=== PATIENT | male | born 1970 | race Caucasian/White ===

== ENCOUNTER 2021-02-24 15:33 | Inpatient (IN) | payer OTHER ==
[~2021-02-24] VITALS: Ht 157.5 cm; Wt 85.3 kg
[2021-02-24 20:10] VITALS: BP 122/81
[2021-02-24] MEDS ORDERED: MELATONIN 5 MG TABLET PO PRN (20:30)
[2021-02-24] MEDS ORDERED: CETIRIZINE HCL 10 MG TABLET PO PRN (20:45)
[2021-02-24] MEDS ORDERED: BISACODYL 10 MG RECTAL RECTAL SUPPOSITORY PR PRN (20:45)
[2021-02-24] MEDS ORDERED: HydrOXYzine PAMOATE 25 MG CAPSULE PO PRN (20:45)
[2021-02-24] MEDS ORDERED: DiphenhydrAMINE HCL 25 MG CAPSULE PO PRN (20:45)
[2021-02-24] MEDS ORDERED: LACTULOSE 20 GM/30 ML SOLUTION UDCUP PO PRN (20:45)
[2021-02-24] MEDS ORDERED: OxyCODONE HCL 10 MG IR TABLET PO PRN (21:00)
[2021-02-24] MEDS: ACETAMINOPHEN 500 MG TABLET PO SCH (21:45)
[2021-02-24] MEDS: CELECOXIB 200 MG CAPSULE PO SCH (21:46)
[2021-02-24] MEDS: DOCUSATE SODIUM 100 MG CAPSULE PO SCH (21:46)
[2021-02-24] MEDS: GABAPENTIN 100 MG CAPSULE PO SCH (21:46)
[2021-02-24] MEDS: HEPARIN SODIUM,PORCINE 5,000 UNITS/ML VIAL SQ SCH (21:46)
[2021-02-24] MEDS: SENNA 187 MG TABLET PO SCH (21:46)
[2021-02-24] MEDS: ETHYL ALCOHOL 62% ANTISEPTIC NASAL INHALANT 0.6 ML AMPUL NASAL SCH (21:47)
[2021-02-24] MEDS ORDERED: SODIUM CL IRRIG SOLN BOTTLE 250 ML IRRIG ONE (21:48)
[2021-02-25] VITALS: BP 121/72
[2021-02-25] MEDS: ACETAMINOPHEN 500 MG TABLET PO SCH ×3 (06:01→21:32)
[2021-02-25] MEDS: HYDROGEN PEROXIDE 118 ML SOLUTION TP SCH (08:19)
[2021-02-25] MEDS: TAMSULOSIN HCL 0.4 MG CAPSULE PO SCH (08:20)
[2021-02-25] MEDS: ETHYL ALCOHOL 62% ANTISEPTIC NASAL INHALANT 0.6 ML AMPUL NASAL SCH ×2 (08:20→20:26)
[2021-02-25] MEDS: CELECOXIB 200 MG CAPSULE PO SCH ×2 (08:21→20:27)
[2021-02-25] MEDS: MULTIVITAMINS WITH MINERALS, THERAPEUTIC TABLET PO SCH (08:21)
[2021-02-25] MEDS: GABAPENTIN 100 MG CAPSULE PO SCH ×3 (08:21→20:27)
[2021-02-25] MEDS: DOCUSATE SODIUM 100 MG CAPSULE PO SCH ×2 (08:22→20:27)
[2021-02-25] MEDS: ASCORBIC ACID 500 MG TABLET PO SCH (08:22)
[2021-02-25] MEDS: HEPARIN SODIUM,PORCINE 5,000 UNITS/ML VIAL SQ SCH ×2 (08:24→16:15)
[2021-02-25 08:35] LABS: BASOPHILS % (AUTO) 0.4 % (0.0-2.0); HEMATOCRIT 30.1 % (41-53); LYMPHOCYTES % (AUTO) 14.4 % (22.0-44.0); MEAN CORPUSCULAR HEMOGLOBIN 30.8 pg (26.0-34.0); MEAN CORPUSCULAR HGB CONC 33.3 G/dL (31.0-37.0); MEAN CORPUSCULAR VOLUME 93 fL (80-100); MONOCYTES # (AUTO) 1.1 K/uL (0.1-1.0); NEUTROPHILS # (AUTO) 10.7 K/uL (1.8-7.7); NEUTROPHILS % (AUTO) 76.2 % (40.0-70.0); PLATELET COUNT (AUTO) 392 K/uL (150-450); RED BLOOD CELL COUNT(AUTO) 3.25 MIL/uL (4.50-5.90); RED CELL DISTRIBUTION WIDTH 15.5 % (11.5-14.5)
[2021-02-25 08:53] LABS: ALANINE AMINOTRANSFERASE 67 U/L (12-78); ALBUMIN 2.9 g/dL (3.4-5.0); ALKALINE PHOSPHATASE 61 U/L (46-116); ANION GAP 6 mmol/L (8-16); ASPARTATE AMINOTRANSFERASE 53 U/L (15-37); BILIRUBIN,TOTAL 1.3 mg/dL (0.1-1.0); CALCIUM, TOTAL 8.7 mg/dL (8.8-10.5); CARBON DIOXIDE 26 mmol/L (22-29); CHLORIDE 104 mmol/L (98-107); CREATININE 1.05 mg/dL (0.60-1.30); GLOMERULAR FILTR. RATE CALC > 60 mL/min (>60); GLUCOSE,RANDOM 101 mg/dL (70-110); POTASSIUM 4.7 mmol/L (3.5-5.1); SODIUM SERUM 136 mmol/L (136-145); TOTAL PROTEIN, SERUM 6.7 g/dL (6.4-8.2); UREA NITROGEN, BLOOD 24 mg/dL (7-18)
[2021-02-25 10:21] VITALS: BP 111/82
[2021-02-25 16:05] VITALS: BP 114/67
[2021-02-25 16:19] LABS: APPEARANCE,URINE CLEAR (CLEAR); BILIRUBIN,URINE NEGATIVE (NEGATIVE); GLUCOSE, URINE (UA) NEGATIVE (NEGATIVE); KETONES,URINE NEGATIVE (NEGATIVE); LEUKOCYTE ESTERASE ,URINE NEGATIVE (NEGATIVE); NITRATE,URINE NEGATIVE (NEGATIVE); OCCULT BLOOD,URINE NEGATIVE (NEGATIVE); PROTEIN,URINE NEGATIVE (NEGATIVE)
[2021-02-25 16:23] LABS: BACTERIA,URINE None Seen /HPF (None Seen); RBC,URINE None Seen /HPF (0-2); SQUAMOUS EPITHELIAL CELL,UR None Seen /LPF (None Seen); WBC,URINE None Seen /HPF (0-5)
[2021-02-25] MEDS: ENOXAPARIN SODIUM 40 MG/0.4 ML PF SYRINGE SQ SCH (20:26)
[2021-02-25] MEDS: SENNA 187 MG TABLET PO SCH (20:27)
[2021-02-26 00:12] VITALS: BP 119/70
[2021-02-26] MEDS: ACETAMINOPHEN 325 MG TABLET PO PRN ×2 (01:44→21:30)
[2021-02-26] MEDS: ACETAMINOPHEN 500 MG TABLET PO SCH (06:01)
[2021-02-26 08:02] VITALS: BP 104/63
[2021-02-26] MEDS: ETHYL ALCOHOL 62% ANTISEPTIC NASAL INHALANT 0.6 ML AMPUL NASAL SCH ×2 (08:08→21:24)
[2021-02-26] MEDS: DOCUSATE SODIUM 100 MG CAPSULE PO SCH ×2 (08:08→21:25)
[2021-02-26] MEDS: GABAPENTIN 100 MG CAPSULE PO SCH ×3 (08:08→21:25)
[2021-02-26] MEDS: ENOXAPARIN SODIUM 40 MG/0.4 ML PF SYRINGE SQ SCH ×3 (08:08→21:35)
[2021-02-26] MEDS: MULTIVITAMINS WITH MINERALS, THERAPEUTIC TABLET PO SCH (08:08)
[2021-02-26] MEDS: ASCORBIC ACID 500 MG TABLET PO SCH (08:08)
[2021-02-26] MEDS: TAMSULOSIN HCL 0.4 MG CAPSULE PO SCH (08:09)
[2021-02-26] MEDS: CELECOXIB 200 MG CAPSULE PO SCH ×2 (08:09→21:27)
[2021-02-26] MEDS: OxyCODONE HCL 5 MG IR TABLET PO PRN (09:30)
[2021-02-26] MEDS: HYDROGEN PEROXIDE 118 ML SOLUTION TP SCH (09:30)
[2021-02-26 16:00] VITALS: BP 141/72
[2021-02-26] MEDS: SENNA 187 MG TABLET PO SCH (21:25)
[2021-02-27 02:00] VITALS: BP 114/70
[2021-02-27 07:08] LABS: BASOPHILS % (AUTO) 0.3 % (0.0-2.0); EOSINOPHILS % (AUTO) 0.9 % (1.0-6.0); HEMATOCRIT 29.7 % (41-53); LYMPHOCYTES % (AUTO) 15.9 % (22.0-44.0); MEAN CORPUSCULAR HEMOGLOBIN 31.1 pg (26.0-34.0); MEAN CORPUSCULAR HGB CONC 33.5 G/dL (31.0-37.0); MEAN CORPUSCULAR VOLUME 93 fL (80-100); MONOCYTES # (AUTO) 1.1 K/uL (0.1-1.0); MONOCYTES % (AUTO) 8.7 % (2.0-9.0); NEUTROPHILS # (AUTO) 9.5 K/uL (1.8-7.7); NEUTROPHILS % (AUTO) 74.2 % (40.0-70.0); PLATELET COUNT (AUTO) 407 K/uL (150-450); RED CELL DISTRIBUTION WIDTH 16.3 % (11.5-14.5)
[2021-02-27 07:34] LABS: ALANINE AMINOTRANSFERASE 55 U/L (12-78); ALBUMIN 2.9 g/dL (3.4-5.0); ALKALINE PHOSPHATASE 68 U/L (46-116); ANION GAP 10 mmol/L (8-16); ASPARTATE AMINOTRANSFERASE 31 U/L (15-37); CALCIUM, TOTAL 8.6 mg/dL (8.8-10.5); CARBON DIOXIDE 25 mmol/L (22-29); CHLORIDE 105 mmol/L (98-107); GLOMERULAR FILTR. RATE CALC > 60 mL/min (>60); GLUCOSE,RANDOM 99 mg/dL (70-110); POTASSIUM 4.5 mmol/L (3.5-5.1); SODIUM SERUM 140 mmol/L (136-145); TOTAL PROTEIN, SERUM 6.5 g/dL (6.4-8.2); UREA NITROGEN, BLOOD 23 mg/dL (7-18)
[2021-02-27] MEDS: ETHYL ALCOHOL 62% ANTISEPTIC NASAL INHALANT 0.6 ML AMPUL NASAL SCH ×2 (08:37→21:20)
[2021-02-27] MEDS: CELECOXIB 200 MG CAPSULE PO SCH ×2 (08:37→21:20)
[2021-02-27] MEDS: ASCORBIC ACID 500 MG TABLET PO SCH (08:37)
[2021-02-27] MEDS: GABAPENTIN 100 MG CAPSULE PO SCH ×3 (08:38→21:22)
[2021-02-27] MEDS: MULTIVITAMINS WITH MINERALS, THERAPEUTIC TABLET PO SCH (08:38)
[2021-02-27] MEDS: ENOXAPARIN SODIUM 40 MG/0.4 ML PF SYRINGE SQ SCH ×2 (08:38→21:19)
[2021-02-27] MEDS: TAMSULOSIN HCL 0.4 MG CAPSULE PO SCH (08:38)
[2021-02-27] MEDS: HYDROGEN PEROXIDE 118 ML SOLUTION TP SCH (08:39)
[2021-02-27] MEDS: DOCUSATE SODIUM 100 MG CAPSULE PO SCH ×2 (08:39→21:19)
[2021-02-27 08:50] VITALS: BP 110/72
[2021-02-27] MEDS: ACETAMINOPHEN 325 MG TABLET PO PRN ×3 (08:56→21:22)
[2021-02-27 16:10] VITALS: BP 127/63
[2021-02-27] MEDS: SENNA 187 MG TABLET PO SCH (21:20)
[2021-02-28 00:09] VITALS: BP 112/62
[2021-02-28] MEDS: MULTIVITAMINS WITH MINERALS, THERAPEUTIC TABLET PO SCH (07:48)
[2021-02-28] MEDS: TAMSULOSIN HCL 0.4 MG CAPSULE PO SCH (07:48)
[2021-02-28] MEDS: ETHYL ALCOHOL 62% ANTISEPTIC NASAL INHALANT 0.6 ML AMPUL NASAL SCH ×2 (07:48→20:39)
[2021-02-28] MEDS: CELECOXIB 200 MG CAPSULE PO SCH ×2 (07:48→20:40)
[2021-02-28] MEDS: ASCORBIC ACID 500 MG TABLET PO SCH (07:48)
[2021-02-28] MEDS: ENOXAPARIN SODIUM 40 MG/0.4 ML PF SYRINGE SQ SCH (07:49)
[2021-02-28] MEDS: GABAPENTIN 100 MG CAPSULE PO SCH ×3 (07:49→20:39)
[2021-02-28] MEDS: DOCUSATE SODIUM 100 MG CAPSULE PO SCH ×2 (07:49→21:00)
[2021-02-28] MEDS: HYDROGEN PEROXIDE 118 ML SOLUTION TP SCH (07:50)
[2021-02-28 08:50] VITALS: BP 121/67
[2021-02-28] MEDS: ACETAMINOPHEN 325 MG TABLET PO PRN ×3 (08:55→20:39)
[2021-02-28 16:28] VITALS: BP 132/83
[2021-02-28] MEDS ORDERED: SODIUM CL IRRIG SOLN BOTTLE 250 ML IRRIG ONE (19:13)
[2021-02-28 20:39] VITALS: BP 116/81
[2021-02-28] MEDS: APIXABAN 5 MG TABLET PO SCH (20:40)
[2021-02-28] MEDS: SENNA 187 MG TABLET PO SCH (21:00)
[2021-03-01 03:34] VITALS: BP 115/78
[2021-03-01] MEDS: ACETAMINOPHEN 325 MG TABLET PO PRN ×5 (03:34→22:04)
[2021-03-01] MEDS: CELECOXIB 200 MG CAPSULE PO SCH ×2 (08:32→20:14)
[2021-03-01] MEDS: APIXABAN 5 MG TABLET PO SCH ×2 (08:32→20:14)
[2021-03-01] MEDS: ASCORBIC ACID 500 MG TABLET PO SCH (08:33)
[2021-03-01] MEDS: GABAPENTIN 100 MG CAPSULE PO SCH ×3 (08:35→20:14)
[2021-03-01 09:16] VITALS: BP 114/71
[2021-03-01] MEDS: ETHYL ALCOHOL 62% ANTISEPTIC NASAL INHALANT 0.6 ML AMPUL NASAL SCH ×2 (09:23→20:13)
[2021-03-01] MEDS: DOCUSATE SODIUM 100 MG CAPSULE PO SCH ×2 (09:24→20:13)
[2021-03-01] MEDS: MULTIVITAMINS WITH MINERALS, THERAPEUTIC TABLET PO SCH (09:24)
[2021-03-01] MEDS: HYDROGEN PEROXIDE 118 ML SOLUTION TP SCH (09:30)
[2021-03-01 16:02] VITALS: BP 117/67
[2021-03-01] MEDS: SENNA 187 MG TABLET PO SCH (20:13)
[2021-03-02 02:30] VITALS: BP 120/72
[2021-03-02] MEDS: ACETAMINOPHEN 325 MG TABLET PO PRN ×4 (02:30→20:04)
[2021-03-02] MEDS: MULTIVITAMINS WITH MINERALS, THERAPEUTIC TABLET PO SCH (08:06)
[2021-03-02] MEDS: ETHYL ALCOHOL 62% ANTISEPTIC NASAL INHALANT 0.6 ML AMPUL NASAL SCH ×2 (08:06→20:03)
[2021-03-02] MEDS: CELECOXIB 200 MG CAPSULE PO SCH ×2 (08:06→20:05)
[2021-03-02] MEDS: ASCORBIC ACID 500 MG TABLET PO SCH (08:06)
[2021-03-02] MEDS: DOCUSATE SODIUM 100 MG CAPSULE PO SCH ×2 (08:06→20:04)
[2021-03-02] MEDS: APIXABAN 5 MG TABLET PO SCH ×2 (08:07→20:06)
[2021-03-02] MEDS: GABAPENTIN 100 MG CAPSULE PO SCH ×3 (08:48→20:22)
[2021-03-02 09:20] VITALS: BP 110/74
[2021-03-02] MEDS: HYDROGEN PEROXIDE 118 ML SOLUTION TP SCH (10:42)
[2021-03-02 16:04] VITALS: BP 117/78
[2021-03-02] MEDS: SENNA 187 MG TABLET PO SCH (20:22)
[2021-03-03 04:55] VITALS: BP 118/73
[2021-03-03 06:15] LABS: BASOPHILS % (AUTO) 0.4 % (0.0-2.0); EOSINOPHILS % (AUTO) 1.5 % (1.0-6.0); HEMATOCRIT 33.1 % (41-53); LYMPHOCYTES # (AUTO) 1.7 K/uL (1.0-4.8); MEAN CORPUSCULAR HEMOGLOBIN 30.9 pg (26.0-34.0); MEAN CORPUSCULAR HGB CONC 33.2 G/dL (31.0-37.0); MEAN CORPUSCULAR VOLUME 93 fL (80-100); MONOCYTES # (AUTO) 0.7 K/uL (0.1-1.0); MONOCYTES % (AUTO) 8.1 % (2.0-9.0); PLATELET COUNT (AUTO) 491 K/uL (150-450); RED BLOOD CELL COUNT(AUTO) 3.56 MIL/uL (4.50-5.90)
[2021-03-03 08:53] VITALS: BP 116/75
[2021-03-03] MEDS: ACETAMINOPHEN 325 MG TABLET PO PRN ×3 (08:53→17:40)
[2021-03-03] MEDS: ETHYL ALCOHOL 62% ANTISEPTIC NASAL INHALANT 0.6 ML AMPUL NASAL SCH ×2 (08:53→20:24)
[2021-03-03] MEDS: CELECOXIB 200 MG CAPSULE PO SCH (08:53)
[2021-03-03] MEDS: GABAPENTIN 100 MG CAPSULE PO SCH ×3 (08:53→20:24)
[2021-03-03] MEDS: HYDROGEN PEROXIDE 118 ML SOLUTION TP SCH (08:54)
[2021-03-03] MEDS: ASCORBIC ACID 500 MG TABLET PO SCH (08:54)
[2021-03-03] MEDS: DOCUSATE SODIUM 100 MG CAPSULE PO SCH ×2 (08:54→20:24)
[2021-03-03] MEDS: MULTIVITAMINS WITH MINERALS, THERAPEUTIC TABLET PO SCH (08:54)
[2021-03-03] MEDS: APIXABAN 5 MG TABLET PO SCH ×2 (08:54→20:24)
[2021-03-03 16:41] VITALS: BP 122/79
[2021-03-03] MEDS: OxyCODONE HCL 5 MG IR TABLET PO PRN (19:06)
[2021-03-03] MEDS: SENNA 187 MG TABLET PO SCH (20:24)
[2021-03-04 01:25] VITALS: BP 125/76
[2021-03-04] MEDS: ACETAMINOPHEN 325 MG TABLET PO PRN ×4 (01:48→20:21)
[2021-03-04] MEDS: APIXABAN 5 MG TABLET PO SCH ×2 (08:41→20:20)
[2021-03-04] MEDS: ETHYL ALCOHOL 62% ANTISEPTIC NASAL INHALANT 0.6 ML AMPUL NASAL SCH ×2 (08:41→20:20)
[2021-03-04] MEDS: MULTIVITAMINS WITH MINERALS, THERAPEUTIC TABLET PO SCH (08:41)
[2021-03-04] MEDS: ASCORBIC ACID 500 MG TABLET PO SCH (08:41)
[2021-03-04] MEDS: GABAPENTIN 100 MG CAPSULE PO SCH ×3 (08:41→20:19)
[2021-03-04] MEDS: DOCUSATE SODIUM 100 MG CAPSULE PO SCH ×2 (08:41→20:20)
[2021-03-04 09:00] VITALS: BP 121/78
[2021-03-04] MEDS: HYDROGEN PEROXIDE 118 ML SOLUTION TP SCH (10:00)
[2021-03-04 16:38] VITALS: BP 134/89
[2021-03-04] MEDS: SENNA 187 MG TABLET PO SCH (20:19)
[2021-03-05 01:30] VITALS: BP 123/80
[2021-03-05] MEDS: GABAPENTIN 100 MG CAPSULE PO SCH ×3 (07:57→20:23)
[2021-03-05 07:58] VITALS: BP 128/77
[2021-03-05] MEDS: ACETAMINOPHEN 325 MG TABLET PO PRN ×3 (07:58→18:40)
[2021-03-05] MEDS: APIXABAN 5 MG TABLET PO SCH ×2 (07:58→20:23)
[2021-03-05] MEDS: ETHYL ALCOHOL 62% ANTISEPTIC NASAL INHALANT 0.6 ML AMPUL NASAL SCH ×2 (07:58→20:24)
[2021-03-05] MEDS: DOCUSATE SODIUM 100 MG CAPSULE PO SCH ×2 (07:58→20:24)
[2021-03-05] MEDS: MULTIVITAMINS WITH MINERALS, THERAPEUTIC TABLET PO SCH (07:58)
[2021-03-05] MEDS: ASCORBIC ACID 500 MG TABLET PO SCH (07:58)
[2021-03-05] MEDS: HYDROGEN PEROXIDE 118 ML SOLUTION TP SCH (07:59)
[2021-03-05 16:02] VITALS: BP 132/91
[2021-03-05] MEDS: SENNA 187 MG TABLET PO SCH (20:24)
[2021-03-06 01:05] VITALS: BP 120/76
[2021-03-06] MEDS: ACETAMINOPHEN 325 MG TABLET PO PRN ×4 (01:05→18:25)
[2021-03-06] MEDS: GABAPENTIN 100 MG CAPSULE PO SCH ×3 (06:20→20:04)
[2021-03-06] MEDS: ETHYL ALCOHOL 62% ANTISEPTIC NASAL INHALANT 0.6 ML AMPUL NASAL SCH ×2 (06:20→20:07)
[2021-03-06] MEDS: APIXABAN 5 MG TABLET PO SCH ×2 (06:20→20:04)
[2021-03-06 06:21] VITALS: BP 117/86
[2021-03-06] MEDS: MULTIVITAMINS WITH MINERALS, THERAPEUTIC TABLET PO SCH (06:21)
[2021-03-06] MEDS: ASCORBIC ACID 500 MG TABLET PO SCH (06:21)
[2021-03-06] MEDS: DOCUSATE SODIUM 100 MG CAPSULE PO SCH ×2 (09:00→20:04)
[2021-03-06] MEDS: HYDROGEN PEROXIDE 118 ML SOLUTION TP SCH (12:32)
[2021-03-06 16:03] VITALS: BP 121/86
[2021-03-06] MEDS: SENNA 187 MG TABLET PO SCH (20:05)
[2021-03-07 03:06] VITALS: BP 119/82
[2021-03-07] MEDS: ACETAMINOPHEN 325 MG TABLET PO PRN ×3 (03:06→21:23)
[2021-03-07 07:39] VITALS: BP 118/75
[2021-03-07] MEDS: GABAPENTIN 100 MG CAPSULE PO SCH (08:26)
[2021-03-07] MEDS: DOCUSATE SODIUM 100 MG CAPSULE PO SCH (08:26)
[2021-03-07] MEDS: HYDROGEN PEROXIDE 118 ML SOLUTION TP SCH (08:27)
[2021-03-07] MEDS: ASCORBIC ACID 500 MG TABLET PO SCH (08:27)
[2021-03-07] MEDS: ETHYL ALCOHOL 62% ANTISEPTIC NASAL INHALANT 0.6 ML AMPUL NASAL SCH ×2 (08:27→21:22)
[2021-03-07] MEDS: APIXABAN 5 MG TABLET PO SCH ×2 (08:27→21:22)
[2021-03-07] MEDS: MULTIVITAMINS WITH MINERALS, THERAPEUTIC TABLET PO SCH (08:27)
[2021-03-07 15:55] VITALS: BP 124/73
[2021-03-07] MEDS: SENNA 187 MG TABLET PO SCH (21:00)
[2021-03-08 02:48] VITALS: BP 112/80
[2021-03-08] MEDS: ACETAMINOPHEN 325 MG TABLET PO PRN ×4 (02:48→20:25)
[2021-03-08 08:00] VITALS: BP 136/91
[2021-03-08] MEDS: ASCORBIC ACID 500 MG TABLET PO SCH (08:59)
[2021-03-08] MEDS: MULTIVITAMINS WITH MINERALS, THERAPEUTIC TABLET PO SCH (08:59)
[2021-03-08] MEDS: APIXABAN 5 MG TABLET PO SCH ×2 (08:59→20:24)
[2021-03-08] MEDS: ETHYL ALCOHOL 62% ANTISEPTIC NASAL INHALANT 0.6 ML AMPUL NASAL SCH ×2 (09:00→20:25)
[2021-03-08] MEDS: HYDROGEN PEROXIDE 118 ML SOLUTION TP SCH (09:00)
[2021-03-08 15:57] VITALS: BP 129/79
[2021-03-08] MEDS: SENNA 187 MG TABLET PO SCH (20:27)
[2021-03-09] MEDS: ACETAMINOPHEN 325 MG TABLET PO PRN ×3 (00:34→17:52)
[2021-03-09 01:01] VITALS: BP 134/88
[2021-03-09 08:30] VITALS: BP 136/89
[2021-03-09] MEDS: ASCORBIC ACID 500 MG TABLET PO SCH (09:02)
[2021-03-09] MEDS: APIXABAN 5 MG TABLET PO SCH ×2 (09:02→20:27)
[2021-03-09] MEDS: ETHYL ALCOHOL 62% ANTISEPTIC NASAL INHALANT 0.6 ML AMPUL NASAL SCH ×2 (09:02→20:27)
[2021-03-09] MEDS: MULTIVITAMINS WITH MINERALS, THERAPEUTIC TABLET PO SCH (09:02)
[2021-03-09 16:50] VITALS: BP 130/79
[2021-03-10 02:51] VITALS: BP 138/90
[2021-03-10] MEDS: MULTIVITAMINS WITH MINERALS, THERAPEUTIC TABLET PO SCH (08:20)
[2021-03-10 08:21] VITALS: BP 127/86
[2021-03-10] MEDS: ASCORBIC ACID 500 MG TABLET PO SCH (08:21)
[2021-03-10] MEDS: ACETAMINOPHEN 325 MG TABLET PO PRN ×2 (08:21→19:31)
[2021-03-10] MEDS: APIXABAN 5 MG TABLET PO SCH ×2 (08:21→21:42)
[2021-03-10] MEDS: ETHYL ALCOHOL 62% ANTISEPTIC NASAL INHALANT 0.6 ML AMPUL NASAL SCH ×2 (08:21→21:43)
[2021-03-10 16:34] VITALS: BP 137/80
[2021-03-10] MEDS ORDERED: ASCO500 PO (17:50)
[2021-03-10] MEDS ORDERED: MULT-248 PO (17:50)
[2021-03-10] MEDS ORDERED: APIX5TAB PO (17:50)
[2021-03-11 01:00] VITALS: BP 116/83
[2021-03-11 08:15] VITALS: BP 111/71
[2021-03-11] MEDS: ACETAMINOPHEN 325 MG TABLET PO PRN (08:16)
[2021-03-11] MEDS: APIXABAN 5 MG TABLET PO SCH (09:59)
[2021-03-11] MEDS: ETHYL ALCOHOL 62% ANTISEPTIC NASAL INHALANT 0.6 ML AMPUL NASAL SCH (09:59)
[2021-03-11] MEDS: ASCORBIC ACID 500 MG TABLET PO SCH (09:59)
[2021-03-11] MEDS: MULTIVITAMINS WITH MINERALS, THERAPEUTIC TABLET PO SCH (09:59)
== END 2021-03-11 12:00 | disposition home or self-care (01) | DRG 534 ==
LOC: 2WR 19:50
PROVIDERS: ADMIT Physical Medicine & Rehabilitation; ATTEND Physical Medicine & Rehabilitation
DX: S72.402A Unspecified fracture of lower end of left femur, initial encounter for closed fracture (principal); S52.501A Unspecified fracture of the lower end of right radius, initial encounter for closed fracture; S22.089A Unspecified fracture of T11-T12 vertebra, initial encounter for closed fracture; S52.202A Unspecified fracture of shaft of left ulna, initial encounter for closed fracture; E46 Unspecified protein-calorie malnutrition; I96 Gangrene, not elsewhere classified; R74.01 Elevation of levels of liver transaminase levels; G47.00 Insomnia, unspecified; K59.00 Constipation, unspecified; D64.9 Anemia, unspecified; D72.829 Elevated white blood cell count, unspecified; V29.88XA Motorcycle rider (driver) (passenger) injured in other specified transport accidents, initial encounter; Y93.89 Activity, other specified; Y92.89 Other specified places as the place of occurrence of the external cause; Y99.8 Other external cause status; Z68.34 Body mass index [BMI] 34.0-34.9, adult; Z79.01 Long term (current) use of anticoagulants
CPT/HCPCS: 72220; 80053; 81001; 85025; 87081; 93970; 97110; 97112; 97116; 97140; 97150; 97162; 97166; 97530; 97535; 99366; J1644; J1650; Q9967